=== PATIENT | male | born 1960 | race Caucasian/White ===

== ENCOUNTER → 2022-06-11 11:23 | Outpatient (BNVA) | payer MEDICARE, SELFPAY | PROVIDERS: PCP Internal Medicine; Visit Provider Psychiatry & Neurology Psychiatry | DX: F32.5 Major depressive disorder, single episode, in full remission (principal); F41.1 Generalized anxiety disorder; I10 Essential (primary) hypertension; M48.00 Spinal stenosis, site unspecified | CPT/HCPCS: Q3014 ==

== ENCOUNTER → 2022-12-05 17:12 | Outpatient (BNVA) | payer MEDICARE, SELFPAY | PROVIDERS: PCP Internal Medicine; Visit Provider Psychiatry & Neurology Psychiatry | DX: F32.5 Major depressive disorder, single episode, in full remission (principal); F41.1 Generalized anxiety disorder; I10 Essential (primary) hypertension | CPT/HCPCS: Q3014 ==

== ENCOUNTER 2023-04-30 14:48 | Outpatient (AMB) | payer MEDICARE, SELFPAY ==
--- NOTE | 2023-04-30 13:53 | A.OFFPSYCH_ITS ---
Intake Intake Visit Reasons: depression Allergies No Known Allergies Allergy (Verified 06/11/22 13:43) Medication List - Last Reconciled 04/30/23 by Valentín Doyle MD amlodipine 2.5 mg PO DAILY diclofenac sodium 75 mg PO BID fluoxetine 20 mg PO DAILY gabapentin 400 mg PO TID sildenafil (Viagra) 25 - 50 mg (0.5 - 1 x 50 mg) PO DAILY PRN trazodone 300 mg (3 x 100 mg) PO BEDTIME 3 months HPI- Psychiatric Chief Complaint: depression HPI Narrative: Pt seen in f/u generally gabapentin 800 bid takes for neuropathy does cut the dose in half at times he is on trazodone 300 mg fluoxetine. Some residual anxiety in rumination but in much better control and previously no severe depressive periods impulsivity seems to be check. Patient is drinking minimal compared to bingeing that he had done years ago. No new medical concerns patient gets along quite well with his partner Past Psychiatric History: hx of recurrent depression anxiety hx ADD used to be tx ADD Mental Status Exam Mental Status Exam Narrative: Mental Status Exam Narrative: Appearance: Casually dressed Behavior: Cooperative appropriate psychomotor: Within normal limits Speech: Normal volume and prosody Thought proccess logical and goal-directed Thought content: Future oriented flying okay about his life Mood: Described as okay stable Affect: Appropriate to mood full affect SI:denies HI:denies VH/AH:none Delusions: None Insight/judgment: Good insight and judgment reflective regarding negative self talk and image at times discontinue Memory/cog: Intact Telehealth Telehealth Location of provider rendering services: practice address Location of patient: address on file Patient Identification confirmed using: Name, : Yes Telehealth method: video Patient verbally consented to treatment: Yes Patient verbally consented to billing insurance company: Yes Minutes spent on Phone/Video with Pt.: 15 Assessment and Plan Assessment & Plan (1) Major depression in full remission: Status: Acute Code(s): F32.5 - Major depressive disorder, single episode, in full remission (2) Generalized anxiety disorder: Status: Acute Code(s): F41.1 - Generalized anxiety disorder (3) Essential (primary) hypertension: Status: Acute Code(s): I10 - Essential (primary) hypertension (4) Spinal stenosis: Status: Acute Code(s): M48.00 - Spinal stenosis, site unspecified Plan Risks benefits reviewed regarding Viagra SSRIs can decreased sexual functioning. Continue fluoxetine gabapentin 1 regarding oversedation with a combination gabapentin trazodone hurt patient try decrease trazodone for time no evidence of serotonin syndrome patient generally stable Medications: Refilled sildenafil (Viagra) administer 30 minutes to 4 hours before activity 25 - 50 mg (0.5 - 1 x 50 mg) PO DAILY PRN 14 tabs 1RF sexual activity Counseling and coordination of Care Pt. Self Management counseling: Exercise, Sleep hygiene and Behavior activation Medication management counseling: Effectiveness and Side effects Details: I spent [25] minutes reviewing the record, seeing the patient and documenting in the medical record. Counseling provided to the patient/caregiver as outlined below. Addressed patient/caregiver concerns regarding current medication regime including effective adherence. Addressed patient/caregiver concerns regarding diagnosis and prognosis including accuracy of diagnosis, prognosis over time, impact of diagnosis. Addressed patient/caregiver concerns regarding impact of recent stressors. COUNTS INCLUDE 234 BEDS AT THE [facility] Medical History (Updated 06/11/22 @ 13:37 by Valentín Doyle MD) Spinal stenosis Major depression in full remission Generalized anxiety disorder Essential (primary) hypertension Social History: Patient grew up in a successful family that owned [email or web address]. 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
== END 2023-04-30 14:49 | disposition home or self-care (01) ==
LOC: HO.HOP 14:48
PROVIDERS: PCP Internal Medicine; Visit Provider Psychiatry & Neurology Psychiatry
DX: F33.42 Major depressive disorder, recurrent, in full remission (principal); F41.1 Generalized anxiety disorder; I10 Essential (primary) hypertension; M48.00 Spinal stenosis, site unspecified
CPT/HCPCS: 99213

== ENCOUNTER → 2023-04-30 14:48 | Outpatient (BNVA) | payer MEDICARE, SELFPAY | PROVIDERS: PCP Internal Medicine; Visit Provider Psychiatry & Neurology Psychiatry ==

== ENCOUNTER 2023-07-17 13:51 | Outpatient (AMB) | payer MEDICARE, SELFPAY ==
--- NOTE | 2023-07-17 14:31 | A.OFFPSYCH_ITS ---
Intake Intake Visit Reasons: depression Allergies No Known Allergies Allergy (Verified 06/11/22 13:43) HPI- Psychiatric Chief Complaint: depression HPI Narrative: Patient has generally been doing okay does feel with issues related to chronic pain in his feet. No significant medical difficulties. Mood generally stable somewhat flat no issues with substance use occasional rare drink. Has not felt overly medicated on gabapentin has lowered gradually over time has been helpful for chronic pain syndrome and anxiety. Generally feeling well on a combination of gabapentin and fluoxetine . No significant anxiety or depressive symptoms Past Psychiatric History: hx of recurrent depression anxiety hx ADD used to be tx ADD Mental Status Exam Mental Status Exam Narrative: Mental Status Exam Narrative: Appearance: Casually dressed Behavior: Cooperative appropriate psychomotor: Within normal limits Speech: Normal volume and prosody Thought proccess logical and goal-directed Thought content: Future oriented feeling okay about his life Mood: Described as okay stable Affect: Appropriate to mood full affect SI:denies HI:denies VH/AH:none Delusions: None Insight/judgment: Good insight and judgment some negative self reflections continue Memory/cog: Intact Assessment and Plan Assessment & Plan (1) Major depression in full remission: Status: Acute Code(s): F32.5 - Major depressive disorder, single episode, in full remission (2) Generalized anxiety disorder: Status: Acute Code(s): F41.1 - Generalized anxiety disorder (3) Spinal stenosis: Status: Acute Code(s): M48.00 - Spinal stenosis, site unspecified Plan Continue gabapentin 400 t.i.d. hold feeling overly sedated. Encourage trying use lowest dose of trazodone to avoid feeling sedated in the morning continue fluoxetine. If feeling overly sedated patient hold doses of gabapentin continues to be helpful for chronic pain syndrome question neuropathy Medications: Changed From gabapentin 400 mg (1/2 x 800 mg) PO TID 3 months 135 tabs 1RF To gabapentin 400 mg PO TID 270 caps 1RF 3 months Refilled trazodone use lowest effective dose 200 - 300 mg (2 - 3 x 100 mg) PO BEDTIME 180 tabs 1RF 3 months Counseling and coordination of Care Details-Self Mgmt counseling: Issues related to chronic self-esteem dealing with issues related to chronic current self-management Diagnosis and Prognosis Counseling: Adequacy of current interventions Details: I spent [36] minutes reviewing the record, seeing the patient and documenting in the medical record. Counseling provided to the patient/caregiver as outlined below. Addressed patient/caregiver concerns regarding current medication regime including effective adherence. Addressed patient/caregiver concerns regarding diagnosis and prognosis including accuracy of diagnosis, prognosis over time, impact of diagnosis. Addressed patient/caregiver concerns regarding impact of recent stressors. [facility] Medical History (Updated 06/11/22 @ 13:37 by Valentín Doyle MD) Spinal stenosis Major depression in full remission Generalized anxiety disorder Essential (primary) hypertension Social History: Patient grew up in a successful family that owned [employer]. 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
== END 2023-07-17 15:39 | disposition home or self-care (01) ==
LOC: HO.HOP 13:51
PROVIDERS: PCP Internal Medicine; Visit Provider Psychiatry & Neurology Psychiatry
DX: F32.5 Major depressive disorder, single episode, in full remission (principal); F41.1 Generalized anxiety disorder; M48.00 Spinal stenosis, site unspecified
CPT/HCPCS: 90833; 99213

== ENCOUNTER → 2023-07-17 13:51 | Outpatient (BNVA) | payer MEDICARE, SELFPAY | PROVIDERS: PCP Internal Medicine; Visit Provider Psychiatry & Neurology Psychiatry | DX: F32.5 Major depressive disorder, single episode, in full remission (principal); F41.1 Generalized anxiety disorder; M48.00 Spinal stenosis, site unspecified | CPT/HCPCS: 99212 ==

== ENCOUNTER 2024-02-09 12:02 | Outpatient (AMB) | payer MEDICARE, SELFPAY ==
--- NOTE | 2024-02-09 12:37 | A.OFFPSYCH_ITS ---
Intake Intake Visit Reasons: depression Allergies No Known Allergies Allergy (Verified 06/11/22 13:43) HPI- Psychiatric Chief Complaint: depression HPI Narrative: Patient has a history of chronic low-level depression past heavy alcohol use chronic pain related to his feet has always felt he did not meet expectation Past Psychiatric History: hx of recurrent depression anxiety hx ADD used to be tx ADD Mental Status Exam Mental Status Exam Patient Appearance: Well Grooomed, Fatigued and Unkempt Patient Orientation: Person, Place and Time Level of Consciousness: Appropriate Patient Behavior: Appropriate and Restless Mood Description: Depressed and Anxious Affect Description: Calm, Constricted, Anxious and Labile Assessment and Plan Assessment & Plan (1) Spinal stenosis: Status: Acute Code(s): M48.00 - Spinal stenosis, site unspecified (2) Major depression in full remission: Status: Acute Code(s): F32.5 - Major depressive disorder, single episode, in full remission (3) Generalized anxiety disorder: Status: Acute Code(s): F41.1 - Generalized anxiety disorder Medications: Changed From gabapentin 400 mg PO TID 3 months 270 caps 1RF To gabapentin 400 mg PO BID 180 caps 1RF 3 months From trazodone use lowest effective dose 200 - 300 mg (2 - 3 x 100 mg) PO BEDTIME 3 months 180 tabs 1RF To trazodone use lowest effective dose 100 - 200 mg (1 - 2 x 100 mg) PO BEDTIME 180 tabs 1RF 3 months Refilled fluoxetine 20 mg PO DAILY 90 caps 1RF Counseling and coordination of Care Details: I spent [] minutes reviewing the record, seeing the patient and documenting in the medical record. Counseling provided to the patient/caregiver as outlined below. Addressed patient/caregiver concerns regarding current medication regime including effective adherence. Addressed patient/caregiver concerns regarding diagnosis and prognosis including accuracy of diagnosis, prognosis over time, impact of diagnosis. Addressed patient/caregiver concerns regarding impact of recent stressors. [facility] Medical History (Updated 06/11/22 @ 13:37 by Valentín Doyle MD) Spinal stenosis Major depression in full remission Generalized anxiety disorder Essential (primary) hypertension Social History: Patient grew up in a successful family that owned [email or web address]. 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
== END 2024-02-09 17:24 | disposition home or self-care (01) ==
LOC: HO.HOP 12:02
PROVIDERS: PCP Internal Medicine; Visit Provider Psychiatry & Neurology Psychiatry
DX: F32.5 Major depressive disorder, single episode, in full remission (principal); F41.1 Generalized anxiety disorder; M48.00 Spinal stenosis, site unspecified
CPT/HCPCS: 99214

== ENCOUNTER → 2024-02-09 12:02 | Outpatient (BNVA) | payer MEDICARE, SELFPAY | PROVIDERS: PCP Internal Medicine; Visit Provider Psychiatry & Neurology Psychiatry | DX: F32.5 Major depressive disorder, single episode, in full remission (principal); F41.1 Generalized anxiety disorder; M48.00 Spinal stenosis, site unspecified | CPT/HCPCS: 99212 ==